=== PATIENT | male | born 1965 | race Caucasian/White ===

== ENCOUNTER 2023-01-02 14:19 | Outpatient (CLI) | payer OTHER | END 2023-01-02 14:20 | disposition home or self-care (01) | LOC: NAV RAD 14:19 | PROVIDERS: ATTEND Family Medicine | DX: M15.9 Polyosteoarthritis, unspecified (principal); M54.16 Radiculopathy, lumbar region; M47.816 Spondylosis without myelopathy or radiculopathy, lumbar region; R91.1 Solitary pulmonary nodule | CPT/HCPCS: 72040; 72100 ==